=== PATIENT | male | born 1995 | race Caucasian/White ===

== ENCOUNTER 2022-11-11 | Emergency (ER) | payer OTHER ==
[~2022-11-11] VITALS: Ht 172.7 cm; Wt 108.0 kg
[2022-11-11 00:51] LABS: BASO% 0.1 % (0-3); EOS% 0.8 % (0-8); HEMATOCRIT 45.8 % (37.0-47.0); HEMOGLOBIN 15.2 g/dl (12.0-16.0); IMMATURE GRANULOCYTES 0.1 % (0.0-5.0); LYMPH% 11.4 % (15-41); MEAN CELL VOLUME 88.6 fL CALC (80.0-100.0); MEAN CORPUSCULAR HGB 29.4 pG CALC (26.0-32.0); MEAN CORPUSCULAR HGB CONC 33.2 g/dL CAL (32.0-36.0); MONO% 10.4 % (2-13); NEUT# 11.89 thou/uL (2.00-7.15); NEUT% 77.2 % (42-76); RED BLOOD COUNT 5.17 mill/uL (4.20-5.60); RED CELL DISTRI WIDTH 12.9 % (11.5-15.5)
[2022-11-11 00:58] LABS: ALBUMIN 4.7 g/dL (3.2-5.0); ALKALINE PHOSPHATASE 85 u/l (38-126); ANION GAP 16 (6-22 (CALC)); BILIRUBIN, TOTAL 0.6 mg/dL (0.02-1.3); BUN 25 mg/dL (7-17); BUN/CREATININE RATIO 25 (12-20 (CALC)); CARBON DIOXIDE 22 mmol/l (22-30); CHLORIDE 106 mmol/l (95-108); GFR FOR AFR.AMER. > 60 ML/MIN (>=60 (CALC)); GFR OTHER RACES > 60 ML/MIN (>=60 (CALC)); POTASSIUM 4.2 mmol/l (3.5-5.1); SGOT/AST 31 u/l (14-36); SODIUM 140 mmol/l (137-146); TOTAL PROTEIN 8.3 g/dL (6.3-8.2)
[2022-11-11 02:30] LABS: URINE BLOOD DIPSTICK LARGE (NEGATIVE); URINE COLOR YELLOW; URINE GLUCOSE - DIPSTICK NEGATIVE (NEGATIVE); URINE KETONE TRACE mg/dL (NEGATIVE); URINE PH 5.5 (4.5-8.0); URINE PROTEIN - DIPSTICK 30 mg/dL (NEG-TRACE); URINE SPECIFIC GRAVITY >=1.030; URINE UROBILINOGEN - DIPSTICK 0.2 E.U./dL (0.2)
[2022-11-11 02:37] LABS: URINE LEUK ESTERASE SMALL (NEGATIVE); URINE NITRITE - DIPSTICK NEGATIVE (Negative)
[2022-11-11 02:38] LABS: URINE BILIRUBIN - DIPSTICK NEGATIVE (NEGATIVE); URINE EPITHELIAL CELLS FEW EPI/hpf (0-FEW); URINE RBC 50-100 RBC/hpf (0-5); URINE WBC >100 WBC/hpf (0-5)
[2022-11-11 02:39] LABS: URINE BACTERIA MANY hpf
[2022-11-11] MEDS ORDERED: IBUPROFEN600 MG PO (02:47)
[2022-11-11] MEDS ORDERED: LEVOFLOXACIN500MG PO (02:47)
[2022-11-11 03:20] VITALS: BP 131/71
== END 2022-11-11 03:20 | disposition home or self-care (01) | DRG 728 ==
LOC: ED → EDSEX 00:42 → ED 03:20
PROVIDERS: Family Medicine
DX: N45.1 Epididymitis (principal)